=== PATIENT | male | born 1970 | race Two or more races ===

== ENCOUNTER 2018-09-10 12:51 | Emergency (ER) | payer OTHER ==
[~2018-09-10] VITALS: Ht 162.6 cm; Wt 65.8 kg
[~2018-09-10 12:51] MED LIST: KETO10TA2 PO; MOTRIN800 MG PO
== END 2018-09-10 15:34 | disposition home or self-care (01) ==
LOC: ER 12:51
DX: S60.212A Contusion of left wrist, initial encounter (principal); W50.0XXA Accidental hit or strike by another person, initial encounter; Y93.89 Activity, other specified; Y92.89 Other specified places as the place of occurrence of the external cause; Y99.8 Other external cause status